=== PATIENT | female | born 1985 | race Caucasian/White ===

== ENCOUNTER 2020-09-17 18:27 | Emergency (ER) | payer OTHER, SELFPAY ==
[2020-09-17 18:36] VITALS: BP 130/69; PULSE 86; RESP 16; TEMP 37.9; O2SAT 100
--- NOTE | 2020-09-17 18:55 | ED.URI ---
HPI - URI/Sore Throat General Chief Complaint: Upper Respiratory Infection Stated Complaint: Fever, drainage and coughing Time Seen by Provider: 09/17/20 18:55 Source: patient, RN notes reviewed and old records reviewed Mode of arrival: ambulatory Limitations: no limitations History of Present Illness HPI Narrative: 35 year old female presents to [facility] with one month duration of intermittent sinus congestion, drainage, cough, sore throat and body aches. Patient states that her throat is so sore today she can't hardly swallow, states that she has a lot of greenish tinged sinus drainage with some pressure to her right ear. Patient states that she has had intermittent fevers for one month duration with fevers up to 101F for the past 2 days. Patient states that she has taken a Vicodin today for her body aches. Patient admits to long history of tobacco abuse denies any shortness of breath. MD elicited complaint: fever, cough, sore throat, rhinorrhea, nasal congestion and other (bodyaches) Pertinent past history: other Onset (ago): month(s) (intermittent waxing and waning symptoms) Consistency: intermittent and progressively worsening Severity: severe Pain scale (0-10): 7 Description of mucous: green Able to tolerate fluids by mouth: Yes Exacerbating factors: swallowing, changing head position and leaning forward Relieving factors: nothing Associated symptoms: fever, myalgias, rhinorrhea, sore throat and cough Treatments prior to arrival: ibuprofen and other (took Vicodin for pain) Related Data Allergies Allergy/AdvReac Type Severity Reaction Status Date / Time ketorolac [From Toradol] Allergy Nausea and Verified 09/17/20 18:46 Vomiting tramadol Allergy Nausea and Verified 09/17/20 18:46 Vomiting Review of Systems Review of Systems: Narrative: CONSTITUTIONAL: Positive for fever, chills, or sweats. EYES: Denies visual changes, redness, or discharge. ENT: Positive for rhinorrhea, congestion, sore throat, right otalgia. CARDIOVASCULAR: Denies chest pain, palpitations, or edema. RESPIRATORY: Positive for cough denies dyspnea. GASTROINTESTINAL: Denies abdominal pain, nausea, vomiting, or diarrhea. GENITOURINARY: Denies dysuria or hematuria. SKIN: Denies rash or itching. MUSCULOSKELETAL: Denies back pain, joint pain, or myalgia. NEUROLOGIC: Denies headache, numbness, or weakness. PSYCHIATRIC: Positive history of anxiety or depression. All systems reviewed & are unremarkable except as noted in HPI and below PMFSH Past Medical History Medical History (Updated 09/17/20 @ 19:38 by Cassia Maya NP) Anxiety and depression Fibromyalgia Fracture of right shoulder Neuropathy Surgical History Surgical History (Updated 09/17/20 @ 19:32 by Cassia Maya NP) History of tonsillectomy History of tubal ligation Family History Family History (Updated 09/17/20 @ 19:33 by Cassia Maya NP) Other Acute myocardial infarction Cerebrovascular accident Diabetes mellitus Heart disease Hypertension Social History Social History (Updated 09/17/20 @ 19:36 by Cassia Maya NP) Smoking packs per day: 1 Smoking cigarettes per day: 20.0 Years smoked: 25 Smoking pack-years: 25.00 Smoking status: Current every day smoker Tobacco type: cigarettes Alcohol intake: current Substance use type: marijuana Last use: daily use Living arrangements: with family Gender identity (if verbalized by the patient): Female Comments At time of signature, agree with nursing past medical, surgical, social and family history. There is no relevant family history pertinent to the presenting complaint Exam Narrative: Exam Narrative: GENERAL: Well-appearing, well-nourished, and in no acute distress. HEAD: Normocephalic, atraumatic. EYES: PERRLA and EOMI. ENT: Nares red with greenish tinged rhinorrhea, no epistaxis. Mucous membranes moist. TM's normal with good light reflex, throat red with no lesions or ex
== END 2020-09-17 19:14 | disposition home or self-care (01) ==
PROVIDERS: Emergency Provider Registered Nurse
DX: J01.40 Acute pansinusitis, unspecified (principal); F17.210 Nicotine dependence, cigarettes, uncomplicated; M79.7 Fibromyalgia; G62.9 Polyneuropathy, unspecified
CPT/HCPCS: 87081; 87880; 99213; G0463

== ENCOUNTER 2024-09-25 17:18 | Emergency (ER) | payer OTHER, SELFPAY ==
--- OUTSIDE RECORDS SUMMARY | 2024-09-25 17:23 | XMS_ITS | Clinical Summary ---
Author Organization [facility] Address [address] [place] [address] Phone Care Team Providers Care Loftsman/Woman Name Role Phone Provider, None Primary Care Provider Unavailabl e Allergies Active Allergy Reactions Criticality Noted Date Comments Ketorolac Tromethamine Vomiting 05/04/2019 Tramadol Vomiting 05/04/2019 Medications No known medications Family History Medical History Relation Name Comments Prostate Cancer Father Asthma Mother Depression Mother Heart Disease Mother High Cholesterol Mother Hypertension Mother Migraines Mother Osteoporosis Mother Thyroid Disease Mother Relation Name Status Comments Father Mother Social History Tobacco Use Types Packs/Day Years Used Date Smoking Tobacco: Every Day Cigarettes Smokeless Tobacco: Never Tobacco Cessation:Ready to Q uit: Not Asked; Counseling Given: Not Answered Comments:varies Alcohol Use Standard Drinks/Week Comments No 0 (1 standard drink = 0.6 oz pur e alcohol) Sexually Active Control Partners Comments Yes Male Comments No Sex and Gender Information Value Date Recorded Sex Assigned at Not on file Legal Sex Female 9:48 PM CDT Gender Identity Not on file Sexual Orientation Not on file Last Filed Vital Signs Vital Sign Reading Time Taken Comments Blood Pressure 128/78 06/22/2024 9:43 AM CDT Pulse 68 06/22/2024 9:43 AM CDT Temperature 35.8 C (96.4 F) 06/22/2024 9:43 AM CDT Respiratory Rate 18 06/22/2024 9:43 AM CDT Oxygen Saturation 99% 06/22/2024 9:43 AM CDT Inhaled Oxygen Concentration - - Weight 74.8 kg (165 lb) 06/22/2024 9:43 AM CDT Height 170.2 cm (5' 7) 06/22/2024 9:43 AM CDT Body Mass Index 25.84 06/22/2024 9:43 AM CDT Plan of Treatment Health Maintenance Due Date Last Done Comments Hepatitis C Virus (HCV) Screening 1985 TdaP Immunization 1985 Human Papillomavirus (HPV) Immunization (1 - 3-dose series) 2000 Hepatitis B Immunization (1 of 3 - 19+ 3-dose series) 2004 Pneumococcal Immunization Co mbined (1 of 2 - PCV) 2004 Pap Smear 2006 Cervical Cancer Screening (CCS) 2015 HPV/Cotest 2015 SARS-COV-2 Immunization (1 - season) 2023 Influenza Immunization (#1) 2024 Respiratory Syncytial Virus (RSV) Immunization (Adult) (1 - 1-dose 75+ series) 2060 Meningococcal Immunization (ACWY) Aged Out No longer eligible based on patient's age to complete this topic Rotavirus Immunization Aged Out No lo nger eligible based on patient's age to complete this topic Insurance MEDICAID [employer] [facility] Care Teams Loftsman/Woman Relationship Specialty Start Date End Date Provider, None [place] PCP - General 07/02/21
[2024-09-25 17:29] VITALS: BP 122/69; PULSE 84; RESP 16; TEMP 36.8; O2SAT 99
--- NOTE | 2024-09-25 18:07 | ED.DENTAL ---
HPI - Dental/Oral General Chief complaint: Dental/Oral Stated complaint: tooth pain Time Seen by Provider: 09/25/24 17:40 Source: patient and RN notes reviewed Mode of arrival: ambulatory Limitations: no limitations History of Present Illness HPI Narrative: Uye[age]sk[age]ms[age]-old female presents Express Care complaining of dental pain for approximately 2 days. Patient does not have a dentist. She reports having poor dental hygiene. Patient states that her 3rd molar a left lower gum is fractured and she has developed redness and swelling around it along with pain. Patient states it hurts to eat and swallow. Patient denies any difficulty breathing, difficulty swallowing, difficulty clearing secretions, pain or swelling in her tongue, any other symptoms. Patient says she does not brush her teeth because it hurts. Related Data Allergies Allergy/AdvReac Type Severity Reaction Status Date / Time ketorolac (From Toradol) Allergy Nausea and Verified 09/17/20 18:46 Vomiting tramadol Allergy Nausea and Verified 09/17/20 18:46 Vomiting Review of Systems Review of Systems: CONSTITUTIONAL: Denies fever, chills, or sweats. EYES: Denies visual changes, redness, or discharge. ENT: Denies rhinorrhea, congestion, sore throat, difficulty clearing secretions, difficulty swallowing, or otalgia. MOUTH: Positive for dental pain and swelling. CARDIOVASCULAR: Denies chest pain, palpitations, or edema. RESPIRATORY: Denies cough or dyspnea. GASTROINTESTINAL: Denies abdominal pain, nausea, vomiting, or diarrhea. GENITOURINARY: Denies dysuria or hematuria. SKIN: Denies rash or itching. MUSCULOSKELETAL: Denies back pain, joint pain, or myalgia. NEUROLOGIC: Denies headache, numbness, or weakness. PSYCHIATRIC: Denies anxiety or depression. All other systems reviewed are negative, except as documented in HPI. [facility] Past Medical History Medical History Fracture of right shoulder Neuropathy Anxiety and depression Fibromyalgia Surgical History Surgical History History of tubal ligation History of tonsillectomy Family History Family History Other Acute myocardial infarction Cerebrovascular accident Diabetes mellitus Heart disease Hypertension Social History Social History Smoking packs per day: 1 Smoking cigarettes per day: 20.0 Years smoked: 25 Smoking pack-years: 25.00 Smoking status: Current every day smoker Tobacco type: cigarettes Alcohol intake: current Substance use type: marijuana Last use: daily use Living arrangements: with family Gender identity (if verbalized by the patient): Female Comments At the time of my signature, I reviewed and agree with the nursing past medical, surgical, social, and family history. There is no relevant family history pertinent to the patient complaint. Exam Narrative: GENERAL: This is a well-nourished, well-developed adult, in no apparent distress. They are non ill-appearing, nontoxic appearing. HEAD: normocephalic, atraumatic. EYES: Sclera clear/white. Conjunctiva normal. Vision is grossly intact. Extraocular movements intact EARS: External ears normal,Hearing grossly intact. NOSE: External nose normal THROAT: Mucous membranes moist, posterior pharynx clear, without erythema or swelling. Uvula midline. OROPHARYNX: Tooth 17 is fractured. Tooth 17 is erythematous the small area of fluctuance. No exudate. Is tender to palpate. Gross dental decay present, gingivitis present. No pain or swelling under the tongue. No suspicious lesions or rashes. Tongue is coated yellow. NECK: Neck supple, non-tender without lymphadenopathy, masses or thyromegaly. CARDIOVASCULAR: Regular rate and rhythm RESPIRATORY: Respiratory rate normal, respiratory effort nonlabored, no respiratory distress SKIN: warm, Dry, intact with no suspicious lesions or rash, good texture and turgor. NEURO: awake, alert, and oriented to person, place and time. There were no obvious focal neurologic abnormalities. EXTREMITIES: No joint tenderness, effusion, or edema noted. Course Course Emergency Course: Portions of this record may have been created with voice recognition software Level of Care: Express Care Visit Vital Signs Vital signs: Vital Signs Temperature 98.3 F 09/25/24 17: Pulse Rate 84 09/25/24 17:29 Respiratory Rate 16 09/25/24 17: Blood Pressure 122/69 09/25/24 17:29 Pulse Oximetry 99 09/25/24 17:29 Oxygen Delivery Room Air 09/25/24 17:29 Temperature 98.3 F 09/25/24 17:29 Pulse Rate 84 09/25/24 17:29 Respiratory Rate 16 09/25/24 17:29 Blood Pressure 122/69 09/25/24 17:29 Pulse Oximetry 99 09/25/24 17:29 Oxygen Delivery Room Air 09/25/24 17:29 Reviewed MDM - Dental/Oral MDM Narrative Medical decision making narrative: Appears a small abscess forming under tooth 17. Tooth 17 is also fractured. Will treat with Augmentin. Prescribe viscous lidocaine as needed for pain. Advised patient to follow-up with dentist, listed dentist for provided for patient. Encourage patient to pressure teeth twice a day into floss twice a day. Discussed physical exam findings. Advised supportive measures and signs/symptoms to go to the ER. Pt is appropriate for outpt treatment and f/u. Differential Diagnosis Differential diagnosis: Likely gingival abscess, dental caries, dental abscess and fracture of tooth Critical Care Time Critical Care Time Critical Care Time: No Discharge Plan Discharge Clinical Impression: Dental abscess Patient Disposition: Home Condition: Stable Instructions: Antibiotic Form, Dental Abscess (ED) Additional Instructions: Take the antibiotics as directed. You may alternate Tylenol and ibuprofen as needed for pain. You may use viscous lidocaine as needed for pain in your mouth. Use a Q-tip and apply directly to the affected area. [place] your teeth gentley and floss at least 2 times a day. You may use mouthwash after each brushing as well. Follow-up with dentist next week. If you develop worsening swelling, fevers, difficulty swallowing or breathing, difficulty opening her jaw, swelling under the tongue, or any other concerns please go to the ER immediately. Patient Language: Citizen Of [place] Prescriptions: New lidocaine HCl [Lidocaine Viscous] 2 % solution 1 applic mucous membrane TID PRN (Reason: pain) Qty: 100 0RF amoxicillin-pot clavulanate 875-125 mg tablet 1 tablet PO Q12H 10 Days Qty: 20 0RF Follow-up/Referrals: PHYSICIAN,BUS SYSTEM OPERATOR [Primary Care Provider] - Stand Alone Forms: Work/School Release IP Time of Disposition: 17:48
== END 2024-09-25 17:54 | disposition home or self-care (01) ==
DX: K04.7 Periapical abscess without sinus (principal); F17.210 Nicotine dependence, cigarettes, uncomplicated; F12.90 Cannabis use, unspecified, uncomplicated; G62.9 Polyneuropathy, unspecified; M79.7 Fibromyalgia
CPT/HCPCS: 99213; G0463

== ENCOUNTER 2024-10-19 08:53 | Emergency (ER) | payer OTHER, SELFPAY ==
[2024-10-19 08:58] VITALS: BP 121/78; PULSE 63; RESP 16; TEMP 36.6; O2SAT 100
--- OUTSIDE RECORDS SUMMARY | 2024-10-19 08:59 | XMS_ITS | Clinical Summary ---
Author Organization [facility] Address [address] [place] [address] Phone Care Team Providers Care Carpet Repairer Name Role Phone Provider, None Primary Care [...] Virus (HCV) Screening 1985 TdaP Immunization 1985 Hepatitis B Immunization (1 of 3 - 19+ 3-dose series) 2004 Pneumococcal Immunization Co mbined (1 of 2 - PCV) 2004 Pap Smear 2006 Human Papillomavirus (HPV) Immunization (1 - 3-dose SCDM series) 2012 Cervical Cancer Screening (CCS) 2015 HPV/Cotest 2015 SARS-COV-2 Immunization ( - season) 2023 Influenza Immunization (#1) 2024 Respiratory Syncytial Virus (RSV) Immunization (Adult) (1 - 1-dose 75+ series) 2060 Meningococcal Immunization (ACWY) Aged Out No longer eligible based on patient's age to complete this topic Rotavirus Immunization Aged Out No lo nger eligible based on patient's age to complete this topic Insurance [facility] Care Teams Carpet Repairer Relationship Specialty Start Date End Date Provider, None [place] PCP - General 07/02/21
--- NOTE | 2024-10-19 09:45 | ED_ITS ---
HPI - Dental/Oral General Chief complaint: Dental/Oral Stated complaint: Tooth Pain Time Seen by Provider: 10/19/24 09:20 Source: patient and RN notes reviewed Mode of arrival: ambulatory Limitations: no limitations History of Present Illness HPI Narrative: 39-year-old female presents to the [facility] complaining of dental pain. Patient primarily feels pain to the right side of her lower mouth. Patient is here 2 weeks ago for her fractured teeth dental infections prescribed Augmentin viscous lidocaine. Patient said they did not help she continues to have worsening pain and swelling. Patient denies any fevers, body aches, chills, no pain or swelling under her tongue, breathing problems , difficulty clearing secretions, or difficulty swallowing. Patient has yet to see a dentist for her issues. Related Data Allergies Allergy/AdvReac Type Severity Reaction Status Date / Time ketorolac (From Toradol) Allergy Nausea and Verified 09/17/20 18:46 Vomiting tramadol Allergy Nausea and Verified 09/17/20 18:46 Vomiting Review of Systems Review of Systems: CONSTITUTIONAL: Denies fever, chills, or sweats. EYES: Denies visual changes, redness, or discharge. ENT: Denies rhinorrhea, congestion, sore throat, or otalgia. MOUTH: Positive for dental pain. CARDIOVASCULAR: Denies chest pain, palpitations, or edema. RESPIRATORY: Denies cough or dyspnea. GASTROINTESTINAL: Denies abdominal pain, nausea, vomiting, or diarrhea. GENITOURINARY: Denies dysuria or hematuria. SKIN: Denies rash or itching. MUSCULOSKELETAL: Denies back pain, joint pain, or myalgia. NEUROLOGIC: Denies headache, numbness, or weakness. PSYCHIATRIC: Denies anxiety or depression. All other systems reviewed are negative, except as documented in HPI. [facility] Past Medical History Medical History Fracture of right shoulder Neuropathy Anxiety and depression Fibromyalgia Surgical History Surgical History History of tubal ligation History of tonsillectomy Family History Family History Other Acute myocardial infarction Cerebrovascular accident Diabetes mellitus Heart disease Hypertension Social History Social History Smoking packs per day: 1 Smoking cigarettes per day: 20.0 Years smoked: 25 Smoking pack-years: 25.00 Smoking status: Current every day smoker Tobacco type: cigarettes Alcohol intake: current Substance use type: marijuana Last use: daily use Living arrangements: with family Gender identity (if verbalized by the patient): Female Comments At the time of my signature, I reviewed and agree with the nursing past medical, surgical, social, and family history. There is no relevant family history pertinent to the patient complaint. Exam Narrative: GENERAL: This is a well-nourished, well-developed adult, in no apparent distress. They are non ill-appearing, nontoxic appearing. HEAD: normocephalic, atraumatic. EYES: Sclera clear/white. Conjunctiva normal. Vision is grossly intact. Extraocular movements intact EARS: External ears normal, Hearing grossly intact. NOSE: External nose normal THROAT: Mucous membranes moist, posterior pharynx clear, without erythema or swelling. Uvula midline. OROPHARYNX: Tooth 17 and 32 is fractured. Tooth 32 is erythematous the small area of fluctuance. No swelling or pain tooth 17. No exudate. Gross dental decay present, gingivitis present. No pain or swelling under the tongue. No suspicious lesions or rashes. Tongue is coated yellow. NECK: Neck supple, CARDIOVASCULAR: Regular rate and rhythm RESPIRATORY: Respiratory rate normal, respiratory effort nonlabored, no respiratory distress SKIN: warm, Dry, intact with no suspicious lesions or rash, good texture and turgor. NEURO: awake, alert, and oriented to person, place and time. There were no obvious focal neurologic abnormalities. EXTREMITIES: No joint tenderness, effusion, or edema noted. Course Course Emergency Course: Portions of this record may have been created with voice recognition software Level of Care: Express Care Visit Vital Signs Vital signs: Vital Signs Temperature 97.9 F 10/19/24 08:58 Pulse Rate 63 10/19/24 08:58 Respiratory Rate 16 10/19/24 08:58 Blood Pressure 121/78 10/19/24 08:58 Pulse Oximetry 100 10/19/24 08:58 Oxygen Delivery Room Air 10/19/24 08:58 Temperature 97.9 F 10/19/24 08:58 Pulse Rate 63 10/19/24 08:58 Respiratory Rate 16 10/19/24 08:58 Blood Pressure 121/78 10/19/24 08:58 Pulse Oximetry 100 10/19/24 08:58 Oxygen Delivery Room Air 10/19/24 08:58 Reviewed MDM - Dental/Oral MDM Narrative Medical decision making narrative: Patient has dental infection to her fractured tooth. Patient said augmented wo rk. Will prescribe her clindamycin. Advised patient to follow-up with dentist. Discussed physical exam findings. Advised supportive measures and signs/symptoms to go to the ER. Pt is appropriate for outpt treatment and f/u. Differential Diagnosis Differential diagnosis: Likely dental caries, toothache, dental abscess and fracture of tooth Critical Care Time Critical Care Time Critical Care Time: No Discharge Plan Discharge Clinical Impression: Fracture of tooth, Dental infection Patient Disposition: Home Condition: Stable Instructions: Antibiotic Form, Toothache (ED) Additional Instructions: Take the antibiotics as directed. You may alternate Tylenol and ibuprofen as needed for pain. Follow instructions on the bottle [place] your teeth and floss at least 2 times a day. You may use mouthwash after each brushing as well. Follow-up with dentist next week. He developed worsening swelling, fevers, difficulty swallowing or breathing, difficulty opening her jaw, swelling under the tongue, or any other concerns please go to the ER immediately. Patient Language: Slovak Prescriptions: New clindamycin HCl [Cleocin HCl] 150 mg capsule 450 mg PO TID 7 Days Qty: 63 0RF Follow-up/Referrals: PHYSICIAN,PACK TRAIN DRIVER [Primary Care Provider] - Stand Alone Forms: Work/School Release IP Time of Disposition: 09:24
== END 2024-10-19 09:34 | disposition home or self-care (01) ==
DX: S02.5XXA Fracture of tooth (traumatic), initial encounter for closed fracture (principal); X58.XXXA Exposure to other specified factors, initial encounter; K04.7 Periapical abscess without sinus; F17.210 Nicotine dependence, cigarettes, uncomplicated; F12.90 Cannabis use, unspecified, uncomplicated; M79.7 Fibromyalgia; G62.9 Polyneuropathy, unspecified
CPT/HCPCS: 99213; G0463

== ENCOUNTER 2025-01-20 09:23 | Emergency (ER) | payer OTHER, SELFPAY ==
--- NOTE | 2025-01-20 09:24 | ED.FEMALEGU ---
HPI - Female Genitourinary General Chief complaint: Urogenital-Female Stated complaint: Urinary Problem Time Seen by Provider: 01/20/25 09:24 Source: patient Mode of arrival: ambulatory Limitations: no limitations History of Present Illness HPI Narrative: Kayleigh is a 39 year old male patient presenting to the clinic today with c/o possible UTI x 3 week. She reports c/o burning, frequency, urgency, malodorous urine, cloudy urine, right sided flank pain. Rates pain 10/10 currently. denies any fevers, chills, body aches. No nausea or vomiting. History of frequent UTIs /kidney infections. Has seen Urology in the past- fiver years ago. Related Data Allergies Allergy/AdvReac Type Severity Reaction Status Date / Time ketorolac (From Toradol) AdvReac Intermediate Nausea and Verified 01/20/25 09:33 Vomiting tramadol AdvReac Intermediate Nausea and Verified 01/20/25 09:33 Vomiting Review of Systems Review of Systems: Pertinent positives per HPI. Patient denies any fever, chills, rash, headache, visual changes, dizziness, cough, runny nose, sore throat, shortness of breath, chest pain, palpitations, nausea, vomiting, diarrhea, constipation, abdominal pain. [facility] Past Medical History Medical History Fracture of right shoulder Neuropathy Anxiety and depression Fibromyalgia Surgical History Surgical History History of tubal ligation History of tonsillectomy Family History Family History Other Acute myocardial infarction Cerebrovascular accident Diabetes mellitus Heart disease Hypertension Social History Social History Smoking packs per day: 1 Smoking cigarettes per day: 20.0 Years smoked: 25 Smoking pack-years: 25.00 Tobacco type: cigarettes Alcohol intake: current Substance use type: marijuana Last use: daily use Living arrangements: with family Gender identity (if verbalized by the patient): Female Comments At the time of my signature, I reviewed and agree with the nursing past medical, surgical, social, and family history. There is no relevant family history pertinent to the patient complaint. Exam Narrative: General: Well-developed, well nourished, in no apparent distress. Head: Normocephalic, atraumatic. Cardio: Regular rate and rhythm, s1 and s2 normal, no murmur appreciated. Resp: Clear to auscultation bilaterally, no rhonchi, rales, wheezing or rubs. Abdomen: Soft, pliable, bowel sounds present in all quadrants, suprapubic tender to palpation, no organomegly, right CVAT tenderness. Course Course Emergency Course: Portions of this record may have been created with voice recognition software. Level of Care: Express Care Visit Vital Signs Vital signs: Vital Signs Temperature 36.7 C 01/20/25 09:32 Pulse Rate 68 01/20/25 09:32 Respiratory Rate 16 01/20/25 09:32 Blood Pressure 126/78 01/20/25 09:32 Pulse Oximetry 99 01/20/25 09:32 Oxygen Delivery Room Air 01/20/25 09:32 Temperature 36.7 C 01/20/25 09:32 Pulse Rate 68 01/20/25 09:32 Respiratory Rate 16 01/20/25 09:32 Blood Pressure 126/78 01/20/25 09:32 Pulse Oximetry 99 01/20/25 09:32 Oxygen Delivery Room Air 01/20/25 09:32 Vital signs reviewed MDM - Female Genitourinary MDM Narrative Medical decision making narrative: At the time of visit patient is resting comfortably on the exam table. Patient appears to be nontoxic. C/o possible UTI x 3 week. She reports c/o burning, frequency, urgency, malodorous urine, cloudy urine, right sided flank pain. Rates pain 10/10 currently. denies any fevers, chills, body aches. No nausea or vomiting. History of frequent UTIs /kidney infections. Has seen Urology in the past- fiver years ago. Urine dip ordered. Labs: Urine dip shows trace of leukocytes. We will send urine for culture Plan: I suspect patient has UTI symptoms/Pyelonephritis symptoms. Urine shows trace of leukocytes. Will place of Bactrim DS. Supportive measures were discussed with the patient and they voiced understanding discharge instructions and agrees to treatment plan. Return precautions reviewed Differential Diagnosis Differential diagnosis: Likely urinary tract infection, cystitis and other (Pyelonephritis) Lab Data Labs: Lab Results 01/20/25 Range/Units 09:39 POC Urine Color Yellow POC Urine Clarity Clear POC Urine pH 7.5 POC Ur Specif [place] 1.020 POC Urine Protein Negative (Negative) POC Ur Glucose (UA) Negative (Negative) POC Urine Ketones Negative (Negative) POC Urine Blood Negative (Negative) POC Urine Nitrite Negative (Negative) POC Urine Bilirubin Negative (Negative) POC Urine Urobilinogen 0.2 POC U Leukocyte Esteras Trace (Negative) Discharge Plan Discharge Clinical Impression: Urinary tract infection Qualifiers: Urinary tract infection type: acute cystitis Hematuria presence: without hematuria Qualified Code(s): N30.00 - Acute cystitis without hematuria Patient Disposition: Home Condition: Stable Instructions: Antibiotic Form, Urinary Tract Infection in Women (ED) Additional Instructions: Urine shows trace of leukocytes. We will send urine for culture. Take Bactrim as prescribed and Zofran as needed for nausea Increase fluids and stay well hydrated Wipe front to back. May use wet wipes. Avoid tub baths If sexually active- pee before and after intercourse. Wear cotton panties Avoid tight clothing up against the genitals Follow up with your PCP in 1 week if symptoms persist. Patient Language: Prydeinig Prescriptions: New ondansetron 8 mg tablet,disintegrating 8 mg PO Q8H PRN (Reason: nausea and vomiting) 7 Days Qty: 21 0RF sulfamethoxazole-trimethoprim [Bactrim DS] 800-160 mg tablet 1 tablet PO Q12H 7 Days Qty: 14 0RF Follow-up/Referrals: UNKNOWN,DOCTOR [Non-Staff] Stand Alone Forms: Work/School Release IP Time of Disposition: 09:40 Quality NIHSS Nursing Documentation ED NIHSS nursing documentation: reviewed/agree
--- OUTSIDE RECORDS SUMMARY | 2025-01-20 09:25 | XMS_ITS | Clinical Summary ---
Author Organization [facility] Address [address] [place] [address] Phone Care Team Providers Care Community Development Officer Name Role Phone Provider, None Primary Care [...] Cervical Cancer Screening (CCS) 2015 HPV/Cotest 2015 Influenza Immunization (#1) 2024 SARS-COV-2 Immunization ( - season) 2024 Respiratory Syncytial Virus (RSV) Immunization (Adult) (1 - 1-dose 75+ series) 2060 Meningococcal Immunization (ACWY) Aged Out No longer eligible based on patient's age to complete this topic Rotavirus Immunization Aged Out No lo nger eligible based on patient's age to complete this topic [facility] Care Teams Community Development Officer Relationship Specialty Start Date End Date Provider, None [place] PCP - General 07/02/21
--- OUTSIDE RECORDS SUMMARY | 2025-01-20 09:26 | XMS_ITS | Data Portability ---
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 ER. Low back pain 666664740 M54.5 patient agreeable to postponing workup until after current UTI is treated. Recurrent urinary tract infection 990891426 N39.0 need to rule out any anatomical problems like VUR. Once current infection clears, recommend starting nitrofuran toin daily for prophylaxi s. [id number] MD Angel Jensenn 14 IM [address] [facility] [address] [place] [address] 01/18/2019 09:50:59 01/19/2019 11:34:27 Fibromyalgia 285838144 M79.7 Requesting new pain mngm Used to see Dr Mccloud Low back pain 703292955 M54.5 Adult heal th examination 684027503 Z00.00 Health Concerns Section Related Observation LastModified by Organization Detai ls LastModified Time None Recorded Concern Status LastModified by Organization Details LastModified Time None Recorded Advance Directives Directive None Recorded Payers Insurance Date Sequence Insurance Name Policy Number Policy Deluna Covered Member ID Deluna Member ID Guarantor Name 02/26/2019 1 [facility] (MEDICAID HMO) Kayleighcarli Gentile [id number] Kayleighcarli Gentile 01/18/2019 1 [facility] (MEDICAID HMO) [id number] Kayleigh Seferino [id number] Kayleigh Gentile Notes Date Note Type Note Provider Name and Address Organization Details Recorded Time 09/08/2016 text/html UTIs: since childhood, saw and had multiple cysts, they were ablated via cystoscopy and for years no more UTIs. Controlled on daily abx for year she took it but then stopped abx and UTIs returned. Tried seeing urologist per [employer] referral but Dr. Holly gary didn't take her insurance. incomplete emptying, feels like she constantly has to void. worse w/ infection, burning sensation. fevers/back pain, nausea when severe. poor appetite, losing weight went to ER 08/12, went back 08/14 since abx didn't work, told she had E. coli and given IV Rocephin abx. pyridium doesn't help. h/o diverticulitis, assoc diarrhea. h/o low back pain present even when she has no UTI. Says only hydrocodone takes away the pain. h/o injury through work, [employer]. Fernanda Puga PA-C Attn: Accounting,[address] [facility], [place], [address], [facility] 09/08/2016 17:52:14 01/18/2019 text/html ROS as noted in the HPI Here to est new PCP HX fibromyalgia and used to see pain mngm Has not been to see them in almost a year and needs referral to someone else. [place], [facility] 01/18/2019 13:35:46 OBGyn Episode No OBEpisode recorded.
[2025-01-20 09:32] VITALS: BP 126/78; PULSE 68; RESP 16; TEMP 36.7; O2SAT 99
[2025-01-20 09:40] LABS: EDUAAPPEAR Clear; EDUABILI Negative (Negative); EDUABLOOD Negative (Negative); EDUACOLOR1 Yellow; EDUAGLUCOSE Negative (Negative); EDUAKETONE Negative (Negative); EDUALEUKO Trace (Negative); EDUANITRATE Negative (Negative); EDUAPH 7.5; EDUAPROTEIN Negative (Negative); EDUASPGRAVITY 1.020; EDUAUROBILI 0.2
== END 2025-01-20 09:43 | disposition home or self-care (01) ==
PROVIDERS: Emergency Provider Nurse Practitioner Family
DX: N30.00 Acute cystitis without hematuria (principal); F17.210 Nicotine dependence, cigarettes, uncomplicated; F12.90 Cannabis use, unspecified, uncomplicated; M79.7 Fibromyalgia; G62.9 Polyneuropathy, unspecified
CPT/HCPCS: 81003; 87086; 87186; 99213; G0463